=== PATIENT | male | born 1980 | race Caucasian/White ===

== ENCOUNTER → 2018-03-09 16:38 | Outpatient (CLI) | payer OTHER, SELFPAY ==
[2018-03-09 15:26] VITALS: BMI 27.4
[2018-03-09 17:20] LABS: Absolute Lymphocyte Count 2.94 X10^3/ul (0.83-4.51); Absolute Neutrophil Count 5.9 X10^3/uL (2.0-7.7); Basophil# 0.03 X10^3/uL; Basophil% 0.3 % (0-1); Eosinophil# 0.09 X10^3/uL; Eosinophils% 0.9 % (0-5); Hematocrit 44.4 % (40-54); Lymphocyte # 2.94 X10^3/ul (4.0); Lymphocyte % 30.3 % (19-41); Mean Corp Hgb Conc 33.8 g/gl (32-36); Mean Corpuscular Hgb 30.2 pg (27.0-32.0); Mean Corpuscular Volume 89.5 fL (80-94); Mean Platelet Vol. 9.3 fl (6.2-12.0); Monocyte# 0.67 X10^3/uL; Monocyte% 6.9 % (0-10); Neutrophil # 5.94 X10^3/uL (2.7-7.7); Neutrophil % 61.2 % (47-70); Platelet Count 261 K/mm3 (150-450); RBC Distribution Width CV 12.7 % (11.6-14.6); RBC Distribution Width SD 41.1 fl (35.1-43.9); Red Blood Count 4.96 M/mm3 (4.6-6.2); White Blood Count 9.7 K/mm3 (4.4-11.0)
[2018-03-09 17:41] LABS: Anion Gap 8 (5-15); BUN 24 mg/dL (7-18); BUN/Creat Ratio 25.9 RATIO (10-20); Calcium,Total 9.2 mg/dL (8.5-10.1); Chloride 102 mmol/L (98-107); Creatinine, Serum 0.92 mg/dL (0.70-1.30); EST Glomerular Filtration Rate 98 mL/min (>60); Est Glom Filt Rate - Afr Amer 119 mL/min (>60); Glucose 94 mg/dL (74-106); Magnesium 2.3 mg/dL (1.6-2.6); Potassium 3.9 mmol/L (3.5-5.1); Sodium Level 140 mmol/L (136-145); Thyroid Stim Hormone (TSH) 1.22 uIU/mL (0.358-3.74)
[2018-03-09 18:20] LABS: POSITIVE COUNT NO; POSITIVE DIFFERENTIAL NO; POSITIVE MORPHOLOGY NO
== END ==
PROVIDERS: Referring Provider Internal Medicine Cardiovascular Disease; Visit Provider Internal Medicine Cardiovascular Disease
DX: Z86.79 Personal history of other diseases of the circulatory system (principal)
CPT/HCPCS: 36415; 80048; 83735; 84443; 85025

== ENCOUNTER → 2018-03-21 14:56 | Outpatient (CLI) | payer OTHER, SELFPAY ==
[2018-03-09 15:26] VITALS: BMI 27.4
--- NOTE | 2018-03-21 14:58 | US_ITS ---
STUDY: THYROID ULTRASOUND REASON FOR EXAM: Male, 37 years old. Thyroid nodule felt by doctor. TECHNIQUE: Ultrasound evaluation of the thyroid was performed with real-time and static anaya-scale imaging. COMPARISON: None. FINDINGS: RIGHT LOBE: The right lobe of the thyroid gland measures 5.0 x 2.0 x 1.3 cm. There is a homogeneous echotexture. There are no demonstrated solid, cystic or complex lesions. LEFT LOBE: The left lobe of the thyroid gland measures 4.5 x 2.0 x 1.6 cm. There is a homogeneous echotexture. There are no demonstrated solid, cystic or complex lesions. ISTHMUS: The isthmus measures 3 mm . US/Thyroid IMPRESSION: Normal ultrasound examination of the thyroid. Electronically Signed: Danny Foster MD at 16:50 EST Tel , Service support ,
--- OUTSIDE RECORDS SUMMARY | 2018-05-23 17:33 | XMS RPT_ITS ---
:1980 Author Organization OHIP Support Name Relationship Address Phone CJ PRITCHETT Unavailable GUILLERMO MALDONADO + [place] [address] [employer] Unavailable [address] + [place] [address] NANCY GILBERTO Unavailable [address] + [place] [address] CJ PRITCHETT Unavailable GUILLERMO MALDONADO + [place] [address] [employer] Unavailable [address] + [place] [address] [facility] Unavailable [address] + [place] [address] CJ PRITCHETT Unavailable GUILLERMO MALDONADO + [place] [address] [employer] Unavailable [address] + [place] [address] NANCY GILBERTO Unavailable [address] + [place] [address] [employer] Unavailable [address] + [place] [address] NANCY, GILBERTO Unavailable [address] + [place] [address] [employer] Unavailable [address] + [place] [address] NANCY, GILBERTO Unavailable [address] + [place] [address] Care Team Providers Name Role Phone Ankit Patel Attending Unavailable Primay Care Physicia, No Referring Unavailable Ankit Patel Attending Unavailable Amanda, Ankit Referring Unavailable Primay Care Physicia, No Primary Care Unavailable Pedro, Ryan Attending Unavailable Pedro, Ryan Referring Unavailable Ryan Vasquez Primary Care Unavailable Amanda, Ankit Attending Unavailable Amanda, Ankit Referring Unavailable Pedro, Ryan Primary Care Unavailable Amanda, Ankit Attending Unavailable Amanda, Wilmot Referring Unavailable Pedro, Ryan Primary Care Unavailable Amanda, Wilmot Consulting Unavailable PROBLEMS PROBLEMS DATE TYPE CONDITION / CODE ATTENDING STATUS SOURCE 03/26/2018 Unknown Z86.79 - Personal Amanda, Ankit Active [place] history of other Community diseases of the Hospital circulatory system Repository / Z86.79(ICD-10) 03/12/2018 Unknown R00.2 - Amanda, Wilmot Active [place] Palpitations / Community R00.2(ICD-10) Hospital Repository 03/12/2018 Unknown R07.9 - Chest Amanda, Wilmot Active [place] pain, unspecified Community / R07.9(ICD-10) Hospital Repository PROCEDURES PROCEDURES No Procedure Records FoundRESULTS RESULTS STRESS TEST ECHO W/O Observed: 03/26/2018 Status: F Source: [place] CONTRAST 6:22 PM [facility] REPOSITORY [facility] Cardiovascular Services [address] [place] [address] Stress Test Echo w/o Contrast MR#: [id number] Acct: [id number] Name: RICHY CRUZ Rep #: [id number] : 1980 37 From: Ankit Patel MD Primary Care: Ryan Vasquez DO Status: REG CLI Ordering Dr: Ankit Patel MD Sex: M C Reason For Study: Chest Pain Stress Results Protocol: Stress Echocardiogram Maximum Predicted HR: 184 bpm Target HR: 156 bpm % Maximum Predicted HR: 103 % DurationHeart Rate Stage (mm:ss) (bpm) BP Comment BASELINE 74 120/78 BRIAN PROTOCOL- STAGE 1 3:00 104 124/80 BRIAN PROTOCOL- STAGE 2 3:00 134 154/84 BRIAN PROTOCOL- STAGE 3 3:00 160 150/86 BRIAN PROTOCOL- STAGE 4 1:17 190 / NO CP RECOVERY 98 120/76 Stress Duration: 10:17 mm:ss Maximum Stress HR: 190 bpm Baseline Echocardiogram Findings Stress Echo Wall motion Data Resting WM Intermediate WM Stress WM Interpretation Summary Exercise stress echo. Resting EKG demonstrates normal sinus rhythm with a rate of 72 bpm normal intervals are noted resting blood pressure 120/78 mmHg. The patient exercised according to regular Brian protocol for a total duration of 10 minutes and 17 seconds. The maximum heart rate attained was 190 bpm which was 103% of maximum predicted heart rate the maximum workload was 13.4 metabolic equivalents. At rest there were no ST or T wave changes noted suggest ischemia peak exercise upsloping ST changes only were noted with normally the criteria for ischemia. The resting blood pressure 120/78 mmHg peak blood pressure was 158/70 mmHg. No clinical angina was noted no EKG changes were noted. The test was terminated due to leg fatigue Stress echocardiographic images. Resting echocardiogram demonstrated preserved ejection fraction of 55% with no wall motion abnormalities noted. At peak exercise there was thickening of all amaro reduction in left ventricular cavity size and peaking of ejection fraction of 65-70%. Conclusion: Exercise stress echo with no EKG or echocardiographic images suggestive of ischemia. Ordering Physician: Ankit Patel MD Referring Physician: Ankit Patel Performed By: 03/26/181820 Date Ankit Patel MD CC: Ankit Patel MD; Ryan Vasquez DO Date Dictated: 03/26/18 1402 Date Transcribed: 03/26/181820 Policy Writer: Signed THYROID Observed: 03/21/2018 Status: F Source: [place] 2:58 PM [facility] REPOSITORY [facility] Imaging Services [address] [place] [address] Thyroid MR#: [id number] Acct: [id number] Name: RICHY CRUZ Rep #: [id number] : 1980 M 37 From: Danny Foster MD PCP: Ryan Vasquez DO Status: REG CLI Study: Thyroid Date of Exam: 03/21/18 Exam# [id number] Ordering Dr: Ryan Vasquez DO STUDY: THYROID ULTRASOUND REASON FOR EXAM: Male, 37 years old. Thyroid nodule felt by doctor. TECHNIQUE: Ultrasound evaluation of the thyroid was performed with real-time and static anaya-scale imaging. COMPARISON: None. FINDINGS: RIGHT LOBE: The right lobe of the thyroid gland measures 5.0 x 2.0 x 1.3 cm. There is a homogeneous echotexture. There are no demonstrated solid, cystic or complex lesions. LEFT LOBE: The left lobe of the thyroid gland measures 4.5 x 2.0 x 1.6 cm. There is a homogeneous echotexture. There are no demonstrated solid, cystic or complex lesions. ISTHMUS: The isthmus measures 3 mm . US/Thyroid IMPRESSION: Normal ultrasound examination of the thyroid. Electronically Signed: Danny Foster MD at 16:50 EST Tel , Service support , CC: Ryan Vasquez DO Policy Writer: Signed CARDIOLOGY VISIT Observed: 03/09/2018 Status: F Source: [place] REPORT 5:03 PM [facility] REPOSITORY [facility] [address] [place] [address]. [address] [place] [address] OFFICE VISIT Date of Service: 03/09/18 MR#: [id number] Acct: [id number] Name: RICHY CRUZ Rep #: [id number] : 1980 Provider: Ankit Patel MD Age/Sex: 37/M Location: [facility] Status: Signed HPI [facility] Chief Complaint: Follow up Details: RICHY CRUZ, is a 37 M who presents to the office today for a follow-up visit. He is a gentleman with a history of supraventricular tachycardia dating back to 2007. He had previously been followed by Dr. Salas of the heart group. He had presented with palpitations in 2013 and underwent an EP study and radiofrequency ablation termination of the tachycardia. 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 He does have a history of anxiety and has been on his antidepressants with occasional marijuana use. More recently he complains of having chest pain described as a tightness his jaw gets so he gets fidgety he feels a pain in his neck is bulging and he is always tired and yawning. He usually wakes up covered in sweat and his blood pressures have been elevated. His father recommended and requested that he see me today. He has not had any further recurrences of his supraventricular tachyarrhythmia. His ejection fraction previously in 2013 was noted to be normal at 65%. His physical exam today demonstrates clear lung heller regular rate and rhythm and no pedal edema. Intake Vital Signs03/09/18 Height 5 ft 6 in 03/09/18 Weight: 170 lb 03/09/18 Body Mass Index (BMI) 27.4 03/09/18 Blood Pressure 140/80 H Intake Visit Reasons: Hx of ablation, having jaw pain, chest pressure Director Global Intelligence Required: No Accompanied by: godfather Is patient in pain?: No Allergies Sulfa (Sulfonamide Antibiotics) Allergy (Verified 12/31/13 21:30) Hives Medications Ibuprofen [Motrin Ib] 400 mg PO PRN PRN 12/04/13 [History Confirmed 12/31/13] alprazolam 0.5 mg tablet 0.5 mg PO BID-TID PRN #1 tab 03/09/18 [Rx Confirmed 03/09/18] bupropion HCl SR 150 mg tablet,12 hr sustained-release 150 mg PO BID #1 ea 03/09/18 [Rx Confirmed 03/09/18] metoprolol succinate ER 50 mg tablet,extended release 24 hr 50 mg PO DAILY #90 tab 03/09/18 [Rx Confirmed 03/09/18] sertraline 100 mg tablet 200 mg PO DAILY #1 tab 03/09/18 [Rx Confirmed 03/09/18] [facility] Medical History History of PSVT (paroxysmal supraventricular tachycardia) (Chronic) Anxiety and depression (Chronic) Asthma (Chronic) Surgical History H/O breast surgery (Resolved) History of radiofrequency ablation procedure for cardiac arrhythmia (Resolved 01/22/14) Family History Father , Age 49 Myocardial infarction age 49 Social History Smoking Status: Former smoker alcohol intake: current alcohol intake frequency: a few times a week Alcohol type: wine ROS Const Const: Positive for fatigue and other (HX SVT ablation 2013, recent onset palps and chest tightness); negative for weakness, body ache, fever(s), headache(s), chills, frequent falls, night sweats, daytime sleepiness, difficulty sleeping, excessive sweating, weight gain, weight loss, increased appetite, poor appetite or anorexia Eyes Eyes: Negative for blind spots, loss of peripheral vision, transient loss of vision, blurry vision, change in vision, double vision, floaters, tunnel vision or other ENT ENT: Negative for headache(s), dizziness, hearing loss, tinnitus, Nosebleed/epistaxis, balance problems, post nasal drip, lip swelling, tongue swelling, bleeding gums, hoarseness, neck pain, dry mouth or other Cardio Chest Pain: Yes (Usually only with palps. Sometimes not) Frequency: other, daily Onset: with meals (After he eats) Location: left chest (pectoral region) Duration: minutes (30 minutes to an hour if he takes Xanax) Palpitations: Yes (On and off last month or 2) feels like its: fast Edema: None Muscle aches with walking: None Resp Respiratory: Negative for SOB with activity, SOB at rest, SOB orthopnea\SOB lying down, Cough, Coughing up blood/hemoptysis, chest congestion, pain on inspiration, snoring, stridor, wheezing, crackles, paroxysmal nocturnal dyspnea or other GI GI: Negative nausea, vomiting, heartburn, constipation, belching, bloating, cramping, vomiting blood/hematemesis, bright, red blood in stools, black,tarry stools, loose stools, Difficulty Swallowing or other : Negative for hematuria, frequent nighttime urination/ nocturia, erectile dysfunction or abnormal vaginal bleeding Musc Musc: Negative for balance problems, muscle aches/ myalgia, muscle weakness or joint pain Skin Skin: Negative redness, non-healing lesions, rash, unusual bruising, skin ulcer, wounds, jaundice or other Neuro Neuro: Negative for weakness, headache(s), frequent falls, blurry vision, double vision, dizziness, lightheadedness, near syncope, syncope, orthostatic symptoms, confusion, memory loss, restless legs, vertigo, seizures, lack of coordination or other Arthur Hematologic/Lymphatic: Negative for easy bleeding, easy bruising, enlarged lymph nodes or other Endo Endo: Positive for fatigue; negative for excessive sweating, cold intolerance, heat intolerance, flushing, increased thirst/drinking, increased hunger, hair loss, hair growth or other Psych Psych: Negative for anxiety, depression, thoughts of harming anyone, thoughts of harming yourself, visual hallucinations, panic attacks or audible hallucinations Allergy Allergy/Immunology: Negative for lip swelling, Negative for tongue swelling, Negative for rash, Negative for throat swelling, Negative for hives Cardiology Exam Const Appearance: cooperative, healthy appearing, well developed, well groomed and no acute distress Nutritional Appearance: well nourished and average body habitus Orientation: alert, awake and oriented x3 Head Head: normal to inspection, normocephalic and atraumatic Ears: hearing grossly normal bilaterally and external ears normal Nose: external nose normal, nasal mucous membranes and turbinates normal, nares normal, septum normal, no nasal discharge Face and Sinus: face symmetric Mouth: oral mucosae normal, tongue normal, oropharynx normal and moist mucous membranes Teeth and gingiva: dentition normal Throat: posterior oropharynx normal, tonsils normal and uvula midline Eyes General: appearance normal, both eyes and all related structures Eyelids: eyelids normal Conjunctivae: conjunctivae normal Pupils: PERRL, normal by confrontation and accommodation normal EOM: EOM intact bilaterally Neck Neck: normal visual inspection, trachea midline and no JVD JVD: +5 Carotids: normal carotid upstroke and bounding pulses Chest Chest inspection: normal inspection of the chest, symmetric chest movement and normal respiratory effort Auscultation: Bilateral: Clear to Auscultation Cardio Palpation: normal PMI Rate: regular rate Rhythm: regular rhythm Heart sounds: S1 normal, S2 normal and normal, physiologic split S2; negative rub, gallop or murmur GI GI: normal to inspection, soft, no hepatosplenomegaly and bowel sounds present Neuro General: alert, awake, oriented x3, no focal sensory deficit, gait normal and moves all extremities Skin Skin: no rashes or lesions noted Extremities Pulses: Normal: Right Femoral Pulse, Left Femoral Pulse, Right Dorsalis Pedis Pulse, Left Dorsalis Pedis Pulse, Right Posterior Tibial Pulse, Left Posterior Tibial Pulse, Right Radial Pulse, Left Radial Pulse Lower Extremity Edema: None: Bilateral Musculoskel Musculoskeletal: No joint tenderness Psych Psychological: normal affect Assessment AND Plan 1. Chest pain R07.9 Plan He does have chest pain which is somewhat atypical. My recommendation at this time will be for us to obtain a stress echocardiogram and to put him on Toprol- XL 50 mg a day. I suspect that there is a large anxiety component of this. I would also recommend him to reduce and desist from his recreational drug use. Depending on the findings of the stress echo further recommendations will be made. 2. History of PSVT (paroxysmal supraventricular tachycardia) Z86.79 RFA Right posterior septal accessory pathway ablated for SVT Plan He did have a history of supraventricular tachyarrhythmia which has been ablated to the best of the clinical judgment he is not had any recurrence of the above. We will continue to observe this. Thank you for allowing me to participate in the care of your patient. Please don't hesitate to call if any issues arise Orders Orders: Plan Detail Other Orders Orders: Other Medications New: Follow Up 6 Weeks (jhr) Coding Level of Care Code Off vis,est,level 4 Diagnoses Chest pain R07.9 History of PSVT (paroxysmal supraventricular tachycardia) Z86.79 Coding Level of Care Code Off vis,est,level 4 Diagnoses Chest pain R07.9 History of PSVT (paroxysmal supraventricular tachycardia) Z86.79 Supplemental Info Supplemental Information Diagnostics Electrocardiogram 03/09/18 Echocardiogram 12/27/13 Stress Echocardiogram 12/26/13 Chest X-Ray 12/04/13 03/09/18 9824 <Electronically signed by Ankit Patel MD> Date Ankit Holder Signature: Date (if applicable) CC: No Primary Care Physician BASIC METABOLIC Collected: 03/09/2018 Status: F Source: [place] PROFILE (BMP) 4:41 PM [facility] REPOSITORY TYPE CODE TESTS RESULT OUT OF RANGE REFERENCE UNITS LAB L501.0100 74-106 mg/dL Normal GLU 94 Result Comment: Please note revised GLUCOSE reference range effective 2017. LAB L501.1000 7-18 mg/dL High BUN 24 LAB L501.1100 0.70-1.30 mg/dL Normal CREAT,SERUM 0.92 Result Comment: The validity of the calculated GFR AND GFRAA in patients over 70 years has not been determined. Clinical correlation is essential. LAB L501.1110 >60 mL/min Normal EST GFR 98 Result Comment: Non- GFR Calc LAB L501.1115 >60 mL/min Normal EST GFR - AA 119 Result Comment: GFR Calc LAB L501.1300 10-20 RATIO High BUN/CRE 25.9 LAB L501.2200 8.5-10.1 mg/dL CA Normal 9.2 LAB L501.5300 136-145 mmol/L NA Normal 140 LAB L501.5600 3.5-5.1 mmol/L K Normal 3.9 LAB L501.5900 98-107 mmol/L CL Normal 102 LAB L501.6100 21.0-32.0 mmol/L Normal CO2 30.0 LAB L501.6200 5-15 Normal GAP 8 Performed By: #### L500.2500, L501.5200, L501.9520 #### [facility] [address] [place], [address] MAGNESIUM Collected: 03/09/2018 Status: F Source: [place] 4:41 PM [facility] REPOSITORY TYPE CODE TESTS RESULT OUT OF RANGE REFERENCE UNITS LAB L501.5200 1.6-2.6 mg/dL Normal MG 2.3 Performed By: #### L500.2500, L501.5200, L501.9520 #### [facility] [address] [place], [place], [address] THYROID STIM HORMONE Collected: 03/09/2018 Status: F Source: [place] (TSH) 4:41 PM [facility] REPOSITORY TYPE CODE TESTS RESULT OUT OF RANGE REFERENCE UNITS LAB L501.9520 0.358-3.74 uIU/mL Normal TSH 1.22 Performed By: #### L500.2500, L501.5200, L501.9520 #### [facility] [address] [place], [place], [address] CBC W/DIFF, AUTOMATED Collected: 03/09/2018 Status: F Source: [place] 4:41 PM [facility] REPOSITORY TYPE CODE TESTS RESULT OUT OF RANGE REFERENCE UNITS LAB L100.1000 4.4-11.0 K/mm3 Normal WBC 9.7 LAB L100.1200 4.6-6.2 M/mm3 Normal RBC 4.96 LAB L100.1300 13.0-16.5 g/dl Normal HGB 15.0 LAB L100.1400 40-54 % Normal HCT 44.4 LAB L100.1500 80-94 fL Normal MCV 89.5 LAB L100.1600 27.0-32.0 pg Normal MCH 30.2 LAB L100.1700 32-36 g/gl Normal MCHC 33.8 LAB L100.1810 11.6-14.6 % Normal RDW CV 12.7 LAB L100.1820 35.1-43.9 fl Normal RDW SD 41.1 LAB L100.1900 150-450 K/mm3 Normal PLT 261 LAB L100.2000 6.2-12.0 fl Normal MPV 9.3 LAB L100.2100 47-70 % Normal NEUT% 61.2 LAB L100.2200 19-41 % Normal LY% 30.3 LAB L100.2300 0-10 % Normal MONO% 6.9 LAB L100.2400 0-5 % Normal EO% 0.9 LAB L100.2500 0-1 % Normal BASO% 0.3 LAB L100.2550 0.0-0.9 % Normal IM GRAN % 0.400 Result Comment: IG% - Immature Granulocytes (promyelocytes, myelocytes and metamyelocytes) > 1% indicates that a LEFT SHIFT is Present. LAB L100.2620 2.0-7.7 X10 3/uL Normal Absolute Neut 5.9 LAB L100.2720 0.83-4.51 X10 3/ul Normal Absolute Lymph 2.94 Performed By: #### L100.0100 #### [facility] [address] [place], [address] 12 LEAD EKG PERFORMED Observed: 03/09/2018 Status: F Source: [place] [facility] 3:31 PM [facility] REPOSITORY [facility] [address] [place] [address] 12 Lead EKG performed by [facility] 03/09/180 MR#: [id number] Acct: [id number] Name: RICHY CRUZ Rep #: [id number] : 1980 37 From: Ankit Patel MD Attending Dr: Ankit Patel MD Status: DEP AMB Ordering Dr: Ankit Patel MD Date: 03/09/18 Location: [facility] Sex: M C Ad[place]: [facility]12 Lead EKG performed by [facility] ECG Report Interpretation Sinus Rhythm WITHIN NORMAL LIMITSElectronically signed on 03/20/2018 at 13:19 by Ankit Patel [employer] Software Version [id number] 03/20/18 1324 Date Ankit Patel MD CC: No Primary Care Physician Date Dictated: 03/09/181529 Date Transcribed: 03/09/181529 Policy Writer: [place] Signed ALLERGIES ALLERGIES DATE TYPE / CODE NAME / CODE REACTION SEVERITY SOURCE 12/31/2013 Drug Sulfa Hives Unknown [facility] Allergy/4160 (Sulfonamide Hospital 45585(SNOMED Antibiotics)/ Repository CT) [id number](RX NORM) ENCOUNTERS ENCOUNTERS ADMIT/DISCHARGE ACCOUNT ADMITTING ENCOUNTER LOCATION SOURCE NUMBER CLASS 03/26/2018 [id number] Ambulatory BMSBuilding:[place] 8 [place].[facility] Hospital Repository 03/26/2018 [id number] Ambulatory [place] [address] [facility] ing:[facility] Repository 03/21/2018 [id number] Ambulatory [place] [address] [facility] ing:US Repository 03/09/2018 [id number] Ambulatory [place] [address] [facility] ing:LAB Repository 03/09/2018/ [id number] Ambulatory BMSBuilding:B [place] 9 0 [facility] Repository PAYERS PAYERS ENCOUNTER GUARANTOR PAYER SUBSCRIBER SOURCE 03/26/2018 RICHY [id number] Primary Insurance:[facility] [id number] [facility] [place] Number: [id number] Hospital [address]Bpf: 330 [id number] Repository [phone] () Date:7452-44-04[address], [place] [address]IP: 03/26/2018 Secondary NOT GIVENUNK [place] Insurance:SELF PAY [facility] Number: Effective Repository Date:2018-03-26 03/26/2018 RICHY [id number] Primary Insurance:[facility] [id number] ENVICTORIAMANNDOB: [place] Number: [id number] Hospital [address]Poi: 330 [id number] Repository [phone] () Date:2765-64-79[address], [place] [address]ED: 03/26/2018 Secondary NOT GIVENUNK [place] Insurance:SELF PAY [facility] Number: Effective Repository Date:2018-03-15 03/21/2018 RICHY Michel [id number] Primary Insurance:[facility] [id number] [facility] [place] Number: [id number] Hospital [address]Fes: [phone] [phone] Repository [phone] (HP) Date:2774-91-46SX [address]QXLHXHDVMC, [place] [address]ON: 03/21/2018 Secondary NOT GIVENUNK [place] Insurance:SELF PAY [facility] Number: Effective Repository Date:2018-03-15 03/09/2018 RICHY L [id number] Primary Insurance:[facility] [id number] ENKEMANNDOB: [place] Number: [id number] Hospital [address]Cru: [phone] [id number] Repository [phone] (HP) AEffective Date:7732-72-57IS [address]HPWDJJCVK[address] [place], [place] [address]BI: 03/09/2018 Secondary NOT GIVENUNK [place] Insurance:SELF PAY [facility] Number: Effective Repository Date:2018-03-09 03/09/2018 RICHY Michel [id number] Primary Insurance:[facility] [address]Dbylta ENKEMANNDOB: [facility] [place] [place] Number: [id number] Hospital [address]Kwt: [phone] [id number] Repository [phone] (HP) ffective Date:1656-90-06QA [address]YEMRFYFT[address] [place], [place] [address]RD: 03/09/2018 Secondary NOT GIVENUNK [place] Insurance:SELF PAY [facility] Number: Effective Repository Date:2018-03-09
== END ==
PROVIDERS: Family Provider Family Medicine; PCP Family Medicine; Referring Provider Family Medicine; Visit Provider Family Medicine
DX: E04.1 Nontoxic single thyroid nodule (principal); R07.89 Other chest pain; F41.9 Anxiety disorder, unspecified
CPT/HCPCS: 76536

== ENCOUNTER → 2018-03-26 13:27 | Outpatient (CLI) | payer OTHER, SELFPAY ==
[2018-03-09 15:26] VITALS: BMI 27.4
--- NOTE | 2018-03-26 13:28 | STE_ITS ---
Reason For Study: Chest Pain Stress Results Protocol: Stress Echocardiogram Maximum Predicted HR: 184 bpm Target HR: 156 bpm % Maximum Predicted HR: 103 % DurationHeart Rate Stage (mm:ss) (bpm) BP Comment BASELINE 74 120/78 CHIN PROTOCOL- STAGE 1 3:00 104 124/80 CHIN PROTOCOL- STAGE 2 3:00 134 154/84 CHIN PROTOCOL- STAGE 3 3:00 160 150/86 CHIN PROTOCOL- STAGE 4 1:17 190 / NO CP RECOVERY 98 120/76 Stress Duration: 10:17 mm:ss Maximum Stress HR: 190 bpm Baseline Echocardiogram Findings Stress Echo Wall motion Data Resting WM Intermediate WM Stress WM Interpretation Summary Exercise stress echo. Resting EKG demonstrates normal sinus rhythm with a rate of 72 bpm normal intervals are noted resting blood pressure 120/78 mmHg. The patient exercised according to regular Chin protocol for a total duration of 10 minutes and 17 seconds. The maximum heart rate attained was 190 bpm which was 103% of maximum predicted heart rate the maximum workload was 13.4 metabolic equivalents. At rest there were no ST or T wave changes noted suggest ischemia peak exercise upsloping ST changes only were noted with normally the criteria for ischemia. The resting blood pressure 120/78 mmHg peak blood pressure was 158/70 mmHg. No clinical angina was noted no EKG changes were noted. The test was terminated due to leg fatigue Stress echocardiographic images. Resting echocardiogram demonstrated preserved ejection fraction of 55% with no wall motion abnormalities noted. At peak exercise there was thickening of all amaro reduction in left ventricular cavity size and peaking of ejection fraction of 65-70%. Conclusion: Exercise stress echo with no EKG or echocardiographic images suggestive of ischemia. Ordering Physician: Ankit Patel MD Referring Physician: Ankit Patel Performed By:
== END ==
PROVIDERS: Family Provider Family Medicine; PCP Family Medicine; Referring Provider Internal Medicine Cardiovascular Disease; Visit Provider Internal Medicine Cardiovascular Disease
DX: Z86.79 Personal history of other diseases of the circulatory system (principal); R07.9 Chest pain, unspecified
CPT/HCPCS: 93017; 93350

== ENCOUNTER → 2022-08-23 | Outpatient (CLI) | payer BC, SELFPAY ==
[2022-08-23 18:22] LABS: Erythrocyte Sedimentation Rate < 1 mm/hr (0-20)
[2022-08-23 18:23] LABS: Absolute Lymphocyte Count 2.57 X10^3/uL (0.83-4.51); Absolute Neutrophil Count 7.7 X10^3/uL (2.0-7.7); Basophil# 0.02 X10^3/uL; Basophil% 0.2 % (0-1); Eosinophil# 0.06 X10^3/uL; Eosinophils% 0.6 % (0-5); Hematocrit 41.8 % (40-54); Hemoglobin 14.1 g/dL (13.0-16.5); Lymphocyte # 2.57 X10^3/ul (0.83-4.51); Lymphocyte % 23.6 % (19-41); Mean Corp Hgb Conc 33.7 g/dL (32-36); Mean Corpuscular Hgb 30.1 pg (27.0-32.0); Mean Corpuscular Volume 89.1 fL (80-94); Mean Platelet Vol. 9.6 fl (6.2-12.0); Monocyte# 0.48 X10^3/uL; Monocyte% 4.4 % (0-10); NRBC Flagged by Analyzer 0 % (0-5); Neutrophil # 7.73 X10^3/uL (2.7-7.7); Neutrophil % 70.8 % (47-70); Platelet Count 299 K/mm3 (150-450); RBC Distribution Width CV 12.6 % (11.6-14.6); RBC Distribution Width SD 40.9 fl (35.1-43.9); Red Blood Count 4.69 M/mm3 (4.6-6.2); White Blood Count 10.9 K/mm3 (4.4-11.0)
[2022-08-23 18:26] LABS: Hemoglobin A1c 5.6 % (3.8-5.6)
[2022-08-23 18:47] LABS: ALB/GLOB Ratio 1.4 RATIO (0.9-2.4); AST(SGOT) 19 U/L (15-37); Alanine Aminotransfer ALT/SGPT 23 U/L (16-61); Albumin, Serum 4.5 g/dL (3.2-5.0); Alkaline Phosphatase 69 U/L (45-117); Anion Gap 6 (5-15); BUN 19 mg/dL (7-18); CRP < 2.90 mg/L (0.0-3.0); Calcium,Total 9.3 mg/dL (8.5-10.1); Chloride 108 mmol/L (98-107); Creatinine, Serum 0.86 mg/dL (0.70-1.30); EST Glomerular Filtration Rate 104 mL/min (>60); Est Glom Filt Rate - Afr Amer 125 mL/min (>60); Globulin 3.2 g/dL (2.2-4.2); Glucose 98 mg/dL (74-106); Lipase 35 U/L (13-75); Potassium 3.3 mmol/L (3.5-5.1); Protein, Total 7.7 g/dL (6.4-8.2); Sodium Level 141 mmol/L (136-145); T4 Free Direct 1.02 ng/dL (0.76-1.46); Thyroid Stim Hormone (TSH) 2.08 uIU/mL (0.358-3.74)
[2022-08-23 18:59] LABS: Vitamin B12 458 pg/mL (211-911)
== END | disposition home or self-care (01) ==
LOC: MTLAB 16:40
PROVIDERS: PCP Family Medicine; Referring Provider Family Medicine; Visit Provider Family Medicine
DX: R61 Generalized hyperhidrosis (principal); R20.2 Paresthesia of skin; I00 Rheumatic fever without heart involvement; R10.9 Unspecified abdominal pain
CPT/HCPCS: 36415; 80053; 82607; 83036; 83690; 84439; 84443; 85025; 85652; 86140

== ENCOUNTER → 2022-09-22 | Outpatient (CLI) | payer BC, SELFPAY ==
[2022-09-22 18:10] LABS: Absolute Lymphocyte Count 2.25 X10^3/uL (0.83-4.51); Absolute Neutrophil Count 7.3 X10^3/uL (2.0-7.7); Basophil# 0.03 X10^3/uL; Basophil% 0.3 % (0-1); Eosinophil# 0.04 X10^3/uL; Eosinophils% 0.4 % (0-5); Hematocrit 43.3 % (40-54); Hemoglobin 15.1 g/dL (13.0-16.5); Lymphocyte # 2.25 X10^3/ul (0.83-4.51); Lymphocyte % 22.2 % (19-41); Mean Corp Hgb Conc 34.9 g/dL (32-36); Mean Corpuscular Hgb 31.2 pg (27.0-32.0); Mean Corpuscular Volume 89.5 fL (80-94); Mean Platelet Vol. 9.7 fl (6.2-12.0); Monocyte# 0.52 X10^3/uL; Monocyte% 5.1 % (0-10); NRBC Flagged by Analyzer 0 % (0-5); Neutrophil # 7.26 X10^3/uL (2.7-7.7); Neutrophil % 71.8 % (47-70); Platelet Count 324 K/mm3 (150-450); RBC Distribution Width CV 12.9 % (11.6-14.6); RBC Distribution Width SD 42.4 fl (35.1-43.9); Red Blood Count 4.84 M/mm3 (4.6-6.2); White Blood Count 10.1 K/mm3 (4.4-11.0)
[2022-09-22 18:40] LABS: ALB/GLOB Ratio 1.3 RATIO (0.9-2.4); AST(SGOT) 22 U/L (15-37); Alanine Aminotransfer ALT/SGPT 24 U/L (16-61); Albumin, Serum 4.5 g/dL (3.2-5.0); Alkaline Phosphatase 80 U/L (45-117); Anion Gap 5 (5-15); BUN 11 mg/dL (7-18); BUN/Creat Ratio 11.2 RATIO (10-20); CRP < 2.90 mg/L (0.0-3.0); Calcium,Total 9.8 mg/dL (8.5-10.1); Chloride 107 mmol/L (98-107); Creatinine, Serum 0.98 mg/dL (0.70-1.30); EST Glomerular Filtration Rate 90 mL/min (>60); Est Glom Filt Rate - Afr Amer 108 mL/min (>60); Globulin 3.4 g/dL (2.2-4.2); Glucose 126 mg/dL (74-106); Lipase 31 U/L (13-75); Potassium 4.2 mmol/L (3.5-5.1); Protein, Total 7.9 g/dL (6.4-8.2); Sodium Level 141 mmol/L (136-145)
== END | disposition home or self-care (01) ==
LOC: BFHLAB 16:13
PROVIDERS: PCP Family Medicine; Referring Provider Family Medicine; Visit Provider Family Medicine
DX: R10.9 Unspecified abdominal pain (principal)
CPT/HCPCS: 36415; 80053; 83690; 85025; 86140

== ENCOUNTER 2024-11-05 15:06 | Emergency (ER) | payer BC, SELFPAY ==
[2024-11-05 15:07] VITALS: BP 127/84; PULSE 80; RESP 18; TEMP 37.1; O2SAT 98; BMI 25.2
== END 2024-11-05 16:20 | disposition left against medical advice (07) ==
LOC: ED 16:20
PROVIDERS: PCP Family Medicine
DX: Z53.21 Procedure and treatment not carried out due to patient leaving prior to being seen by health care provider (principal)